=== PATIENT | male | born 1990 | race Hispanic/Latino ===

== ENCOUNTER 2024-02-19 16:33 | Emergency (ER) | payer OTHER, BC ==
[~2024-02-19] VITALS: Ht 180.3 cm; Wt 99.8 kg
[~2024-02-19 16:33] MED LIST: HYDR-4068 PO
[2024-02-19 17:41] VITALS: BP 164/110; PULSE 74; RESP 16; TEMP 98.3; O2SAT 98
[2024-02-19] MEDS ORDERED: IBUP-2070 PO (17:57)
[2024-02-19] MEDS ORDERED: PENI500T2 PO (17:57)
[2024-02-19] MEDS ORDERED: HYD50 PO (17:57)
[2024-02-19] MEDS: ibuPROFEN 600 MG TABLET PO SCH (18:45)
== END 2024-02-19 19:07 ==
LOC: EEVIPCON 16:33 → EDH 16:33
DX: F41.9 Anxiety disorder, unspecified (principal); R51.9 Headache, unspecified; K08.89 Other specified disorders of teeth and supporting structures; K21.9 Gastro-esophageal reflux disease without esophagitis; I10 Essential (primary) hypertension; Z90.49 Acquired absence of other specified parts of digestive tract; Z79.899 Other long term (current) drug therapy
CPT/HCPCS: 93005